=== PATIENT | female | born 1945 | race Caucasian/White ===

== ENCOUNTER 2018-11-29 11:11 | Emergency (ER) | payer OTHER ==
[~2018-11-29] VITALS: Ht 152.4 cm; Wt 40.8 kg
[2018-11-29] MEDS ORDERED: SYNTHROID50 MCG PO (11:30)
[2018-11-29] MEDS ORDERED: ATIVAN0.5 MG PO (11:30)
[2018-11-29] MEDS ORDERED: TOPROL XL50 MG PO (11:31)
== END 2018-11-29 14:39 | disposition home or self-care (01) ==
LOC: ER 11:11
DX: S05.12XA Contusion of eyeball and orbital tissues, left eye, initial encounter (principal); R41.0 Disorientation, unspecified; W18.09XA Striking against other object with subsequent fall, initial encounter; Y93.89 Activity, other specified; Y92.018 Other place in single-family (private) house as the place of occurrence of the external cause; Y99.8 Other external cause status

== ENCOUNTER 2019-01-08 12:07 | Outpatient (CLI) | payer OTHER ==
[~2019-01-08 12:07] MED LIST: ATIVAN0.5 MG PO; SYNTHROID50 MCG PO; TOPROL XL50 MG PO
== END 2019-01-08 12:11 | disposition home or self-care (01) ==
LOC: RAD 12:07
DX: I11.9 Hypertensive heart disease without heart failure (principal); J20.8 Acute bronchitis due to other specified organisms

== ENCOUNTER 2019-05-19 13:26 | Emergency (ER) | payer OTHER ==
[~2019-05-19] VITALS: Ht 160 cm; Wt 39.0 kg
[2019-05-19] MEDS ORDERED: OXYTROL1 EACH (13:38)
[2019-05-19] MEDS ORDERED: PROZAC10 MG (13:38)
[2019-05-20] MEDS ORDERED: CEFUROXIME500 MG PO (03:26)
[2019-05-20] MEDS ORDERED: DOLOGESIC 500-1 EACH PO (03:26)
== END 2019-05-20 03:29 | disposition home or self-care (01) ==
LOC: ER 13:26
DX: G89.21 Chronic pain due to trauma (principal); M54.6 Pain in thoracic spine; R10.12 Left upper quadrant pain; I16.0 Hypertensive urgency; I10 Essential (primary) hypertension; K76.89 Other specified diseases of liver; N39.0 Urinary tract infection, site not specified; B96.29 Other Escherichia coli [E. coli] as the cause of diseases classified elsewhere

== ENCOUNTER 2019-08-28 16:11 | Emergency (ER) | payer OTHER ==
[~2019-08-28] VITALS: Ht 160 cm; Wt 37.2 kg
[~2019-08-28 16:11] MED LIST changes: +CEFUROXIME500 MG PO; +DOLOGESIC 500-1 EACH PO; +OXYTROL1 EACH; +PROZAC10 MG
[2019-08-28] MEDS ORDERED: KETO10TA2 PO (22:40)
[2019-08-28] MEDS ORDERED: PEPCID AC20 MG PO (22:40)
[2019-08-28] MEDS ORDERED: ONDANSETRON ODT4 MG PO (22:40)
[2019-08-28] MEDS ORDERED: APETIGEN-PLUS1 EACH PO (22:40)
== END 2019-08-28 23:36 | disposition home or self-care (01) ==
LOC: ER 16:11
DX: E86.0 Dehydration (principal); R10.84 Generalized abdominal pain